=== PATIENT | male | born 1970 | race Caucasian/White ===

== ENCOUNTER 2018-08-25 14:31 | Emergency (ER) | payer OTHER ==
[~2018-08-25] VITALS: Ht 175.3 cm; Wt 92.5 kg
[~2018-08-25 14:31] MED LIST: BACLOFEN10 MG PO; HUMALOG100 UNIT/1 SUB-Q; HUMALOG100 UNITS/ IV; IBUPROFEN200 MG PO; IBUPROFEN400 MG PO; LANTUS100 UNITS/ SUB-Q; LIDODERM700 MG TOP; LISINOPRIL-HCT1 EACH PO; LISINOPRIL10 MG PO; MOTRIN IB200 MG PO; NEURONTIN100 MG PO; NORCO 5-325 TA1 EACH PO; NORCO 7.5-3251 EACH PO; NOVOLIN 70100 UNITS/ SUB-Q; PERCOCET 7.5-31 EACH PO; PRILOSEC20 MG PO; ROBAXIN-750750 MG PO; SURESTEP PRO1 EA VI; TRAMADOL HCL50 MG PO
== END 2018-08-25 17:36 | disposition home or self-care (01) ==
LOC: ED 14:31
DX: B34.9 Viral infection, unspecified (principal); E11.9 Type 2 diabetes mellitus without complications; I10 Essential (primary) hypertension; Z79.899 Other long term (current) drug therapy; Z79.4 Long term (current) use of insulin
CPT/HCPCS: 71046; 81001; 87502; 99283-25

== ENCOUNTER 2018-10-15 15:27 | Emergency (ER) | payer OTHER ==
[~2018-10-15] VITALS: Ht 175.3 cm; Wt 92.5 kg
== END 2018-10-15 19:13 | disposition home or self-care (01) ==
LOC: ED 15:27
DX: J06.9 Acute upper respiratory infection, unspecified (principal); E11.9 Type 2 diabetes mellitus without complications; I10 Essential (primary) hypertension; Z98.818 Other dental procedure status; Z79.899 Other long term (current) drug therapy; Z79.4 Long term (current) use of insulin
CPT/HCPCS: 80053; 81001; 83690; 85025; 99284

== ENCOUNTER 2022-07-20 10:53 | Emergency (ER) | payer OTHER ==
[~2022-07-20] VITALS: Ht 175.3 cm; Wt 96.3 kg
[~2022-07-20 10:53] MED LIST changes: +METFORMIN HCL1000 M1 PO; +TENORMIN25 MG PO
[2022-07-20] MEDS ORDERED: AMOX TR-K CLV1 EAC1 PO (14:42)
== END 2022-07-20 15:38 | disposition home or self-care (01) ==
LOC: ED 10:53
DX: L03.116 Cellulitis of left lower limb (principal); M86.9 Osteomyelitis, unspecified; I10 Essential (primary) hypertension; E11.9 Type 2 diabetes mellitus without complications; J43.9 Emphysema, unspecified; Z79.899 Other long term (current) drug therapy; Z79.4 Long term (current) use of insulin
CPT/HCPCS: 36415; 73630; 80053; 85025; 96365; 99283-25; J0295

== ENCOUNTER 2023-07-20 15:27 | Emergency (ER) | payer OTHER ==
[~2023-07-20] VITALS: Ht 175.3 cm; Wt 96.2 kg
[~2023-07-20 15:27] MED LIST changes: +AMOX TR-K CLV1 EAC1 PO
[2023-07-20 16:20] LABS: BASOPHILS 0.3 % (0-2); EOSINOPHILS 1.4 % (0-6); HEMATOCRIT 36.5 % (35.0-50.0); HEMOGLOBIN 12.2 g/dL (12.0-18.0); LYMPHOCYTES 19.8 % (24-44); MCH 30.2 (27-36); MCHC 33.3 g/dl (30-36); MCV 90.5 fl (81-99); MONOCYTES 6.7 % (0-12); NEUTROPHILS 71.8 % (39-80); PLATELET COUNT 243 K/uL (140-440); RBC 4.03 M/ul (4.3-5.7); RDW 12.5 (10.5-15.0)
[2023-07-20 16:31] LABS: ANION GAP 12.3 (7-21); BUN/CREATININE RATIO 23.12 (6.0-28.6); CREATININE, SERUM 1.6 mg/dL (0.70-1.30); POTASSIUM 6.3 mmol/L (3.5-5.1)
[2023-07-20 20:32] LABS: ANION GAP 13.9 (7-21); BUN/CREATININE RATIO 26.61 (6.0-28.6); CALCIUM 8.5 mg/dL (8.5-10.1); CREATININE, SERUM 1.39 mg/dL (0.70-1.30); POTASSIUM 4.9 mmol/L (3.5-5.1)
[2023-07-20] MEDS ORDERED: LASIX20 MG PO (20:45)
[2023-07-20 21:00] VITALS: BP 132/80
--- NOTE | 2023-07-21 06:04 | EKG ---
[facility] [address] [facility] [place] [address] Signed Sinus bradycardia Otherwise normal ECG When compared with ECG of 02-OCT-2021 16:25, No significant change was found Confirmed by HERRERA MORTON MD ([id number]) on 07/21/2023 6:04:27 AM Electronically Signed By: HERRERA MORTON 07/21/23 0604 PATIENT NAME: LIZABETH BAKER Electrocardiogram DATE OF : 66 PHYSICIAN: HERRERA MORTON REPORT #: [id number] REPORT IS CONFIDENTIAL AND NOT TO BE RELEASED WITHOUT AUTHORIZATION
== END 2023-07-20 21:00 | disposition home or self-care (01) ==
LOC: ED 15:27
PROVIDERS: Emergency Medicine; Internal Medicine
DX: E87.5 Hyperkalemia (principal); E11.65 Type 2 diabetes mellitus with hyperglycemia; I10 Essential (primary) hypertension; Z79.4 Long term (current) use of insulin; Z79.84 Long term (current) use of oral hypoglycemic drugs; Z79.899 Other long term (current) drug therapy
CPT/HCPCS: 36415; 80048; 85025; 93005; 93010; 96361; 96374; 99285-25; J1940; J7030; J7040